=== PATIENT | female | born 1980 | race Caucasian/White ===

== ENCOUNTER 2016-08-20 16:55 | Observation (INO) ==
[2016-08-20] MEDS ORDERED: 0.9 % Sodium Chloride 1,000 ML IVC ONE (17:11)
--- NOTE | 2016-08-20 17:15 | Emergency Department Note ---
Disposition Clinical Impression: Headache, Leukocytosis Disposition: Admitted As Inpatient Condition: Fair Referrals: Juanpablo Monteiro MD [Primary Care Provider] - Forms: ED Satisfaction Letter Time of Disposition: 19:29 (giana obslorena) Headache HPI - General Chief Complaint: ED Headache Stated Complaint: migraine/fatigue/dark urine Time Seen by Provider: 08/20/16 17:05 Source: patient Mode of arrival: ambulatory Limitations: no limitations Nursing Notes Reviewed: Yes Vital Signs Reviewed: Yes - History of Present Illness HPI Narrative: 6-year-old female with history of migraines presents to the emergency room and states she has a migraine since unable to relieve it with Tylenol or Motrin patient states no different than her typical headaches patient states that she may have had a low-grade fever she denies any neck pain or neck stiffness she denies anything makes it better anything is worse no photophobia no photophobia no blurred vision or double vision no ataxia she denies any rashes or lesions she states that her said she had a fever since she has had a little cough and congestion no abdominal pain or discomfort of the elbow pain which has been there for a number of years she denies any rashes lesions swelling or edema like she denies any additional complaints with complete entire review systems Pt Subjective Complaint: headache Onset (ago): day(s) Onset description: gradual Location: global Pain Severity: moderate Pain Scale: 6 Quality: aching, constant, similar to previous headaches Improves with: nothing Worsens with: none Associated symptoms: Reports: fever, malaise, weakness. Denies: chest pain, cough, diaphoresis, nausea, vomiting, neck stiffness, photophobia, phonophobia, seizure, eye pain/redness, syncope, vision changes, SOB, tingling, numbness, confusion Treatments prior to arrival: acetaminophen, NSAID - Related Data Home Medications Medication Instructions Recorded Confirmed No Known Home Drugs 08/20/16 08/20/16 Allergies Allergy/AdvReac Type Severity Reaction Status Date / Time Tetanus Vaccines and Toxoid Allergy Hives Verified 08/20/16 16:56 All systems ED: reviewed and negative except as stated. Constitutional: Denies: fever, chills, weakness Eyes: Denies: vision change ENT ED: Denies: ear pain, throat pain Cardiovascular: Denies: chest pain, palpitations Respiratory: Denies: cough, dyspnea, wheezes Gastrointestinal: Denies: abdominal pain, nausea Genitourinary: Denies: urgency, dysuria, frequency Musculoskeletal: Denies: back pain, neck pain Integumentary: Denies: abrasion Neurological: Reports: headache Psychiatric: Denies: anxiety Endocrine: Reports: fatigue Hematological/Lymphatic: Denies: easy bleeding Allergic/Immunologic: Denies: facial swelling Headache PMH - Past Medical History Medical history: Reports: migraine Psychiatric history: Reports: no psych history - Social History Smoking Status: Former smoker Alcohol use: Reports: none Drug use: Reports: none Physical Exam - General Limitations: no limitations General appearance: alert, in no apparent distress, anxious - Head Head exam: atraumatic, normocephalic, normal inspection - Eye Eye exam: Present: normal appearance, PERRL, EOMI - ENT ENT exam: normal exam, normal oropharynx, mucous membranes moist, TM's normal bilaterally, normal external ear exam, other (Reproducible sinus pain beefy red erythema over the maxillary region) - Neck Neck exam: Present: normal inspection, full ROM, trachea midline. Absent: tenderness, meningismus, lymphadenopathy - Chest Chest inspection: Present: normal inspection, symmetric chest wall rise - Respiratory Respiratory exam: Present: normal lung sounds bilaterally - Cardiovascular Cardiovascular exam: Present: regular rate, normal rhythm, normal heart sounds - Abdominal Exam Abdominal exam: Present: soft, Non-Tender, normal bowel sounds - Extremities Exam Extremities exam: Present: normal inspection, full ROM, normal capillary refill. Absent: tenderness - Expanded Lower Extremity Exam Gait: observed and normal - Back Exam Back exam: Present: normal inspection, full ROM. Absent: muscle spasm - Neurological Exam Neurological exam: Present: alert, oriented X3, CN II-XII intact - Psychiatric Psychiatric exam: Present: normal affect, normal mood - Skin Skin exam: Present: warm, dry, intact, normal color Course Course Narrative: Patient seen and examine patient had CBC Chem-7 laboratory data done actually a CT of the head was done showing no acute intracranial process but more maxillary sinusitis which could be contributing to this headache with leukocytosis and greater than 35,000 and the potential of this inducing sepsis patient was admitted for observation to be monitored overnight patient's had no hypotension. Of time here in the emergency room vital signs remained stable Vital Signs Temperature 99.2 F 08/20/16 16:56 Pulse Rate 76 08/20/16 16:56 Respiratory Rate 18 08/20/16 16:56 Blood Pressure 106/76 08/20/16 16:56 O2 Sat by Pulse Oximetry 98 08/20/16 16:56 Temperature 99.2 F 08/20/16 16:56 Pulse Rate 76 08/20/16 16:56 Respiratory Rate 18 08/20/16 16:56 Blood Pressure 106/76 08/20/16 16:56 O2 Sat by Pulse Oximetry 98 08/20/16 16:56 Oxygen Delivery Oxygen Delivery Room Air Headache - Differential Diagnosis Differential Diagnosis: Likely: headache - Medical Records Medical records reviewed: Yes I reviewed the patient's medical records. - Lab Data Lab results reviewed: Yes I reviewed the patient's lab results. Result diagrams: 08/20/16 17:39 08/20/16 17:39 Lab Results 08/20/16 08/20/16 08/20/16 Range/Units 17:00 17:39 17:39 WBC 35.7 H* (4.3-11.1) K/mcL RBC 5.32 H (3.82-4.97) M/mcL Hgb 14.9 (11.5-15.4) g/dL Hct 44.7 (35.3-44.9) % MCV 84.0 (83.0-100.0) fL MCH 28.0 (28.0-33.3) pg MCHC 33.3 (31.6-35.5) g/dL RDW 12.7 (11.5-14.5) % Plt Count 266 (140-400) K/mcL MPV 11.4 (9.4-12.4) fL Seg Neutrophils % 70.0 % Band Neutrophils % 20.0 H (0-4) % Lymphocytes % 6.0 % Monocytes % 2.0 % Metamyelocytes % 2.0 H (0) % Neutrophils # 32.1 H (1.6-8.9) K/mcL Lymphocytes # 2.1 (0.6-4.6) K/mcL Monocytes # 0.7 (0.0-1.3) K/mcL Toxic Vacuolation Present A (Not Present) Platelet Estimate Normal (Normal) PT (9.4-12.1) Seconds INR APTT 39.5 H (26.0-36.0) Seconds VBG Lactic Acid (0.5-2.2) mmol/L Sodium (136-145) mEq/L Potassium (3.5-4.5) mEq/L Chloride (98-109) mEq/L Carbon Dioxide (19-29) mEq/L BUN (7-20) mg/dL Creatinine (0.57-1.11) mg/dL Est GFR ( Amer) (> 60) Est GFR (Non-Af Amer) (> 60) BUN/Creatinine Ratio (6-26) Glucose (70-99) mg/dL Calculated Osmolality (280-300) Calcium (8.6-10.8) mg/dL Total Bilirubin (0.2-1.2) mg/dL AST (5-34) Units/L ALT (0-55) Units/L Alkaline Phosphatase (38-126) Units/L Serum Total Protein (6.0-8.3) g/dL Albumin (3.5-5.0) g/dL Globulin (2.4-3.5) g/dL Albumin/Globulin Ratio (1.1-2.2) Urine Color Dark Yellow (Yellow) Urine Clarity Slightly Cloudy A (Clear) Urine pH 5.5 (5.0-8.0) pH Units Ur Specific [place] 1.025 (1.010-1.025) Urine Protein 100 H (Neg-Trace) mg/dL Urine Glucose (UA) Normal (Normal) mg/dL Urine Ketones 15 H (Negative) mg/dL Urine Blood Small H (Negative) Urine Nitrite Negative (Negative) Urine Bilirubin Moderate H (Negative) Urine Urobilinogen Normal (Normal) mg/dL Ur Leukocyte Esterase Negative (Negative) Urine Microscopic RBC 3-5 H (0-3) per hpf Urine Microscopic WBC 0-3 (0-3) per hpf Ur Squamous Epith Cells Many H (None-Few) per lpf Urine Bacteria Few (None-Few) per hpf Urine Mucus Many H (Few) 08/20/16 08/20/16 08/20/16 Range/Units 17:39 17:39 18:28 WBC (4.3-11.1) K/mcL RBC (3.82-4.97) M/mcL Hgb (11.5-15.4) g/dL Hct (35.3-44.9) % MCV (83.0-100.0) fL MCH (28.0-33.3) pg MCHC (31.6-35.5) g/dL RDW (11.5-14.5) % Plt Count (140-400) K/mcL MPV (9.4-12.4) fL Seg Neutrophils % % Band Neutrophils % (0-4) % Lymphocytes % % Monocytes % % Metamyelocytes % (0) % Neutrophils # (1.6-8.9) K/mcL Lymphocytes # (0.6-4.6) K/mcL Monocytes # (0.0-1.3) K/mcL Toxic Vacuolation (Not Present) Platelet Estimate (Normal) PT 19.7 H (9.4-12.1) Seconds INR 1.8 APTT (26.0-36.0) Seconds VBG Lactic Acid 1.7 (0.5-2.2) mmol/L Sodium 133 L (136-145) mEq/L Potassium 4.1 (3.5-4.5) mEq/L Chloride 98 (98-109) mEq/L Carbon Dioxide 23 (19-29) mEq/L BUN 25 H (7-20) mg/dL Creatinine 0.78 (0.57-1.11) mg/dL Est GFR ( Amer) > 60 (> 60) Est GFR (Non-Af Amer) > 60 (> 60) BUN/Creatinine Ratio 32 H (6-26) Glucose 98 (70-99) mg/dL Calculated Osmolality 280 (280-300) Calcium 9.7 (8.6-10.8) mg/dL Total Bilirubin 0.8 (0.2-1.2) mg/dL AST 12 (5-34) Units/L ALT 13 (0-55) Units/L Alkaline Phosphatase 86 (38-126) Units/L Serum Total Protein 7.3 (6.0-8.3) g/dL Albumin 3.2 L (3.5-5.0) g/dL Globulin 4.1 H (2.4-3.5) g/dL Albumin/Globulin Ratio 0.8 L (1.1-2.2) Urine Color (Yellow) Urine Clarity (Clear) Urine pH (5.0-8.0) pH Units Ur Specific [place] (1.010-1.025) Urine Protein (Neg-Trace) mg/dL Urine Glucose (UA) (Normal) mg/dL Urine Ketones (Negative) mg/dL Urine Blood (Negative) Urine Nitrite (Negative) Urine Bilirubin (Negative) Urine Urobilinogen (Normal) mg/dL Ur Leukocyte Esterase (Negative) Urine Microscopic RBC (0-3) per hpf Urine Microscopic WBC (0-3) per hpf Ur Squamous Epith Cells (None-Few) per lpf Urine Bacteria (None-Few) per hpf Urine Mucus (Few) - Radiology Data Radiology results reviewed: Yes I reviewed the patient's radiology results. ITS Impressions Head CT 08/20/16 17:11 IMPRESSION: No acute intracranial abnormality. Bilateral maxillary sinusitis. D/ / Jack Tejeda MD / Jack Tejeda MD Interpreting Provider: Jack Tejeda MD Critical Care Time Critical Care Time: Yes Total Critical Care Time: 35 Attestation: Critical care performed: 35 minutes as a result of patient having a leukocytosis trying to determine the etiology for this patient's having no belly pain no chest pain or discomfort nothing that is atypical for her this is her normal migraine headache she has got no photophobia and phonophobia with etc. possibly is a meningitis or infectious arrangements for admission and evaluation Time is exclusive of separately billable procedures. Time includes: direct patient care, patient reassessment, coordination of patient care, interpretation of data (laboratory data, radiology data, and respiratory data), review of patient's medical records, medical consultation and documentation of patient care. Procedures included in critical care time: Procedures excluded from critical care time:
[2016-08-20 17:30] LABS: Bilirubin,Urine Moderate (Negative); Blood,Urine Small (Negative); Clarity,Urine Slightly Cloudy (Clear); Color,Urine Dark Yellow (Yellow); Glucose,Urine (UA) Normal (Normal); Ketones,Urine 15 mg/dL (Negative); Leukocyte Esterase,Urine Negative (Negative); Nitrite,Urine Negative (Negative); PH,Urine 5.5 pH Units (5.0-8.0); Protein,Urine 100 mg/dL (Neg-Trace); Specific Gravity,Urine 1.025 (1.010-1.025); Urobilinogen,Urine Normal (Normal)
[2016-08-20 17:45] LABS: Bacteria,Urine Few per hpf (None-Few); Mucus,Urine Many (Few); Squamous Epithelial Cell,Urine Many per lpf (None-Few); WBC,Urine 0-3 per hpf (0-3)
[2016-08-20 17:45] LABS: Hematocrit 44.7 % (35.3-44.9); Hemoglobin 14.9 g/dL (11.5-15.4); Mean Corpuscular HGB Conc 33.3 g/dL (31.6-35.5); Mean Platelet Volume 11.4 fL (9.4-12.4); Platelet Count 266 K/mcL (140-400); Red Blood Count 5.32 M/mcL (3.82-4.97); Red Cell Distribution Width 12.7 % (11.5-14.5)
[2016-08-20 17:58] LABS: INR 1.8; Prothrombin Time 19.7 Seconds (9.4-12.1)
[2016-08-20 18:00] LABS: Alanine Aminotransferase 13 Units/L (0-55); Albumin 3.2 g/dL (3.5-5.0); Albumin/Globulin Ratio 0.8 (1.1-2.2); Alkaline Phosphatase 86 Units/L (38-126); Aspartate Amino Transferase 12 Units/L (5-34); BUN/Creatinine Ratio 32 (6-26); Bilirubin,Total 0.8 mg/dL (0.2-1.2); Blood Urea Nitrogen 25 mg/dL (7-20); Calcium 9.7 mg/dL (8.6-10.8); Carbon Dioxide 23 mEq/L (19-29); Chloride 98 mEq/L (98-109); Globulin 4.1 g/dL (2.4-3.5); Glucose 98 mg/dL (70-99); Osmolality,Calculated 280 (280-300); Potassium 4.1 mEq/L (3.5-4.5); Sodium 133 mEq/L (136-145); Total Protein 7.3 g/dL (6.0-8.3); eGFR For African Americans > 60 (> 60); eGFR For Non-African Americans > 60 (> 60)
[2016-08-20 18:15] LABS: Lymphocytes # 2.1 K/mcL (0.6-4.6); Monocytes # 0.7 K/mcL (0.0-1.3); Neutrophils # 32.1 K/mcL (1.6-8.9)
[2016-08-20 18:16] LABS: Platelet Estimate Normal (Normal); Toxic Vacuolation Present (Not Present)
[2016-08-20] MEDS ORDERED: D5 IVPB ONE (19:05)
[2016-08-20] MEDS ORDERED: CEFTRIAXONE IVPB ONE (19:05)
[2016-08-20] MEDS ORDERED: WATER IVPB ONE (19:05)
[2016-08-20] MEDS ORDERED: Ondansetron 4 MG/2 ML VIAL IVP PRN (20:22)
[2016-08-20] MEDS ORDERED: Naloxone 0.4 MG/ML INJ IVP PRN (20:22)
[2016-08-20] MEDS: *HR* HYDROcodone/Acet 5/325 mg TABLET PO PRN (20:53)
[2016-08-20] MEDS: 0.9 % Sodium Chloride 1,000 ML IVC SCH (23:34)
[2016-08-21] MEDS: *HR* HYDROcodone/Acet 5/325 mg TABLET PO PRN ×3 (02:43→21:59)
[2016-08-21 05:05] LABS: Basophils # 0.1 K/mcL (0.0-0.2); Basophils % 0.3 %; Eosinophils % 1.2 %; Hematocrit 34.9 % (35.3-44.9); Hemoglobin 11.8 g/dL (11.5-15.4); Immature Granulocytes % 1.2 % (0-4); Lymphocytes # 1.3 K/mcL (0.6-4.6); Lymphocytes % 6.3 %; Mean Corpuscular HGB Conc 33.8 g/dL (31.6-35.5); Mean Corpuscular Hemoglobin 28.3 pg (28.0-33.3); Mean Corpuscular Volume 83.7 fL (83.0-100.0); Mean Platelet Volume 11.4 fL (9.4-12.4); Monocytes # 1.1 K/mcL (0.0-1.3); Monocytes % 5.4 %; Platelet Count 211 K/mcL (140-400); Red Blood Count 4.17 M/mcL (3.82-4.97); Red Cell Distribution Width 12.5 % (11.5-14.5); Segmented Neutrophils % 85.6 %
[2016-08-21 05:24] LABS: Eosinophils # 0.2 K/mcL (0.0-0.6); Neutrophils # 17.5 K/mcL (1.6-8.9)
[2016-08-21 05:34] LABS: BUN/Creatinine Ratio 26 (6-26); Blood Urea Nitrogen 15 mg/dL (7-20); Calcium 8.5 mg/dL (8.6-10.8); Carbon Dioxide 23 mEq/L (19-29); Chloride 103 mEq/L (98-109); Glucose 79 mg/dL (70-99); Osmolality,Calculated 282 (280-300); Potassium 3.5 mEq/L (3.5-4.5); Sodium 136 mEq/L (136-145); eGFR For African Americans > 60 (> 60); eGFR For Non-African Americans > 60 (> 60)
[2016-08-21] MEDS: 0.9 % Sodium Chloride 1,000 ML IVC SCH ×2 (07:22→15:29)
--- NOTE | 2016-08-21 15:54 | Internal Med History&Physical ---
Date of Encounter: 08/21/16 Time of Encounter: 15:25 Assessment and Plan (1) Headache Current visit: Yes Status: Acute She has been admitted with when necessary analgesics ordered. Qualifiers: Headache type: unspecified Headache chronicity pattern: episodic headache Intractability: not intractable Qualified Code(s): R51 - Headache (2) Leukocytosis Current visit: Yes Status: Acute Etiology is not obvious. She has been started on Rocephin. This will be continued along with IV fluids. Labs be repeated in a.m. Qualifiers: Leukocytosis type: unspecified Qualified Code(s): D72.829 - Elevated white blood cell count, unspecified Internal Medicine - H&P: HPI Chief complaint: Headache and syncope Admitted From: Home Plans for Post Hospital Care: Home History of present illness: Ms. Jara is a 36 year old female who came to emergency room stating she had onset of a migraine headache August 18. She had 3 episodes of vomiting and felt she was becoming more lethargic. On the day of admission she was attempting to go to the bathroom and had a syncopal episode after getting out of bed. She felt she was unconscious for only a few seconds. There was no injury sustained when she fell. She decided to take a shower then come to emergency room. She was found to have significantly elevated WBC with left shift on the differential. She was admitted to [facility] floor for ongoing care needs. She states she has not vomited in the last 24 hours. She was diagnosed with migraine headaches approximately age 26 and has had 1 to 2 headaches per year. She denies other neurologic disorders and has not had previous syncopal episodes. Past Med Surg Social Fam HX - Past Medical History Medical history: migraine, other Psychiatric history: no psych history - Social History Smoking Status: Former smoker Smokeless Tobacco Status: No Alcohol use: none Drug use: none Internal Medicine - H&P: Meds No Known Home Drugs 08/20/16 [History] Allergies Tetanus Vaccines and Toxoid Allergy (Verified 08/20/16 16:56) Hives All Systems PM: A 10-system review of systems was performed and is negative for pertinent findings except as documented above in the HPI. Review of systems: Gen.: She states her weight is been stable the past few months Cardiovascular: She denies DE hypertension heart failure angina DVT or pulmonary embolus Respiratory: She smoked for a few years in early adulthood. She denies known chronic lung disease GI: She denies disorders of her liver gallbladder or exocrine pancreas. She has been diagnosed with Crohn's disease with her last flare over one year ago : She denies hematuria dysuria or kidney stones Neurologic: As per history of present illness Endocrine: She has no known diabetes or thyroid disease or hyperlipidemia Hematology/oncology: She denies blood disorders cancers or anemia Psychiatric: She denies anxiety depression or other mental health issues Musk skeletal: She denies arthritis gout or other bone joint or muscle disorders. - Constitutional Vitals: Temp Pulse Resp BP Pulse Ox 98.6 F 70 16 99/72 96 08/21/16 14:35 08/21/16 14:35 08/21/16 14:35 08/21/16 14:35 08/21/16 14:35 Exam: General: She is a well-developed well-nourished female who appears in no severe distress at present time. HEENT: Head is atraumatic and normocephalic. Eyes: EOMI. There is no scleral icterus. Mouth: Mucosa is moist. Neck: Supple and nontender. There is no thyromegaly or adenopathy noted. Heart: Regular without murmurs gallops or ectopics. Lungs: No wheezes or crackles are heard. Abdomen: Soft and nontender. No masses or guarding are noted. Extremities: There is no cyanosis edema or clubbing noted. Dorsalis pedis and posttibial pulses are 1-2 over 2 bilaterally. Neurologic: Mental status: She is talkative and a good historian. Cranial nerves: Smile is symmetric. Forehead wrinkles bilaterally. Tongue protrudes midline. EOMI. Motor: There is no pronator drift. Cerebellar: Finger to nose is intact bilaterally. Skin: Warm and dry Internal Med - H&P Results - Labs CBC & Chem 7: 08/21/16 04:28 08/21/16 04:28 Labs: Short CBC 08/21/16 Range/Units 04:28 WBC 20.4 H (4.3-11.1) K/mcL Hgb 11.8 D (11.5-15.4) g/dL Hct 34.9 L (35.3-44.9) % Plt Count 211 (140-400) K/mcL Neutrophils # 17.5 H (1.6-8.9) K/mcL BMP 08/21/16 04:28 Sodium 136 Potassium 3.5 Chloride 103 Carbon Dioxide 23 BUN 15 D Creatinine 0.57 Glucose 79 Calcium 8.5 L
[2016-08-21] MEDS ORDERED: 0.45 % Sodium Chloride w/KCl 20 MEQ/1,000 ML MLS IVC SCH (16:45)
[2016-08-21] MEDS ORDERED: CefTRIAXone 1,000 MG in D5% in Water (Mini-Bag+) 100 ML IVPB SCH (19:00)
[2016-08-22 05:29] LABS: Basophils # 0.1 K/mcL (0.0-0.2); Basophils % 0.6 %; Eosinophils # 0.2 K/mcL (0.0-0.6); Eosinophils % 1.6 %; Hematocrit 33.4 % (35.3-44.9); Hemoglobin 11.1 g/dL (11.5-15.4); Immature Granulocytes % 0.9 % (0-4); Lymphocytes # 1.5 K/mcL (0.6-4.6); Lymphocytes % 15.6 %; Mean Corpuscular HGB Conc 33.2 g/dL (31.6-35.5); Mean Corpuscular Volume 84.1 fL (83.0-100.0); Mean Platelet Volume 11.5 fL (9.4-12.4); Monocytes # 1.1 K/mcL (0.0-1.3); Monocytes % 11.4 %; Platelet Count 203 K/mcL (140-400); Red Blood Count 3.97 M/mcL (3.82-4.97); Red Cell Distribution Width 12.6 % (11.5-14.5); Segmented Neutrophils % 69.9 %
[2016-08-22 05:33] LABS: Neutrophils # 6.9 K/mcL (1.6-8.9)
[2016-08-22 05:42] LABS: BUN/Creatinine Ratio 11 (6-26); Blood Urea Nitrogen 6 mg/dL (7-20); Calcium 8.4 mg/dL (8.6-10.8); Carbon Dioxide 25 mEq/L (19-29); Chloride 107 mEq/L (98-109); Glucose 117 mg/dL (70-99); Osmolality,Calculated 289 (280-300); Potassium 3.7 mEq/L (3.5-4.5); Sodium 140 mEq/L (136-145); eGFR For African Americans > 60 (> 60); eGFR For Non-African Americans > 60 (> 60)
[2016-08-22] MEDS: *HR* HYDROcodone/Acet 5/325 mg TABLET PO PRN (09:24)
[2016-08-22 11:07] VITALS: BP 109/67
--- NOTE | 2016-08-22 11:53 | Discharge Summary ---
Date of Encounter: 08/22/16 Time of Encounter: 11:40 - Discharge Diagnosis (1) Headache Priority: Primary Status: Acute Qualifiers: Headache type: unspecified Headache chronicity pattern: episodic headache Intractability: not intractable Qualified Code(s): R51 - Headache (2) Leukocytosis Priority: Secondary Status: Resolved Qualifiers: Leukocytosis type: unspecified Qualified Code(s): D72.829 - Elevated white blood cell count, unspecified - Discharge Medications Prescriptions: Cefuroxime PO [Ceftin] 500 mg PO Q12HR #4 tablet Lactobacillus [Culturelle] 1 each PO BID #4 cap.sprink Home Medications: Cefuroxime PO [Ceftin] 500 mg PO Q12HR #4 tablet 08/22/16 [Rx] Lactobacillus [Culturelle] 1 each PO BID #4 cap.sprink 08/22/16 [Rx] Allergies/Adverse Reactions: Allergies Tetanus Vaccines and Toxoid Allergy (Verified 08/20/16 16:56) Hives Date of admission: 08/20/16 20:06 Primary care physician: Juanpablo Monteiro MD - Patient Status Disposition: Home, Self-Care Condition: Fair Overall status at discharge: patient is progressing back to baseline - Discharge Instructions Follow Up With: Juanpablo Monteiro MD [Primary Care Provider] - 1 week - Diet and Activity Activity: resume usual activities as tolerated Diet: advance to your usual diet Hospital course: Ms. Jara is a 36 year old female who came to emergency room stating she had onset of a migraine headache August 18. She had 3 episodes of vomiting and felt she was becoming more lethargic. On the day of admission she was attempting to go to the bathroom and had a syncopal episode after getting out of bed. She felt she was unconscious for only a few seconds. There was no injury sustained when she fell. She decided to take a shower then come to emergency room. She was found to have significantly elevated WBC with left shift on the differential. She was admitted to [facility] for ongoing care needs. Initial orders were written by the emergency room physician. I saw her on August 21 and performed a history and physical. She was started on IV Rocephin through emergency room. A specific location and source of the infection was not identified. Repeat labs showed normalization of WBC by the day of discharge with resolution of the left shift. She will continue on oral Ceftin with lactobacillus for 2 additional days after discharge. IV fluids were given and her BUN decreased to 6 by the day of discharge with creatinine 0.57. She had no further syncopal or near syncopal episodes. Her headache significantly improved and had almost resolved by the time of discharge. She felt stable for discharge home on August 22. She will follow with her PCP Dr. Juanpablo Monteiro within 1 week. - Time Spent with Patient Total time spent providing and/or coordinating discharge services: - Constitutional Vitals: Temp Pulse Resp BP Pulse Ox 98.4 F 57 14 109/67 97 08/22/16 11:05 08/22/16 11:05 08/22/16 11:05 08/22/16 11:05 08/22/16 11:05
== END 2016-08-22 16:42 | disposition home or self-care (01) ==
LOC: INPPIK 16:55 → EMEROOPIK 16:55 → INPPIK 20:15
PROVIDERS: ADMIT Internal Medicine; ATTEND Internal Medicine